=== PATIENT | female | born 1945 | race Caucasian/White ===

== ENCOUNTER 2016-11-20 20:57 | Inpatient (IN) | payer OTHER ==
[~2016-11-20] VITALS: Ht 154.9 cm; Wt 58.4 kg
[2016-11-20 21:35] LABS: AMYLASE 92 IU/L (1-118); CHLORIDE 104 mEq/L (99-109); POTASSIUM 3.7 mEq/L (3.7-5.4); SODIUM 143 mEq/L (136-147)
[2016-11-20 21:37] LABS: GLUCOSE 92 mg/dL (70-99)
[2016-11-20 21:38] LABS: ANION GAP 13 MEQ/L (2-14)
[2016-11-20 21:40] LABS: BASOPHIL COUNT 0.1 K/uL (0-0.1); EOSINOPHIL (%) 2.2 % (0-5); EOSINOPHIL COUNT 0.3 K/uL (0-0.3); HEMATOCRIT 38.7 % (36.0-46.0); IMMATURE GRANULOCYTE (%) 0.6 % (0.0-0.7); IMMATURE GRANULOCYTE COUNT 0.1 K/uL; INSTRUMENT ABS NEUTROPHIL CT 8.9 K/uL; LYMPHOCYTE COUNT 3.2 K/uL (1.0-2.8); MCH 30.6 PG (29.0-34.0); MCHC 33.9 G/DL (30.0-36.0); MCV 90.4 FL (83-99); MONOCYTE (%) 5.2 % (3-12); MONOCYTE COUNT 0.7 K/uL (0-0.8); NEUTROPHIL (%) 67.5 % (45-76); NEUTROPHIL COUNT 8.9 K/uL (1.8-6.4); RBC DIS.WIDTH-CV 14.4 % (11.8-14.6); RBC DIS.WIDTH-SD 47.9 % (39-53); RED BLOOD COUNT 4.28 M/uL (3.80-5.20); SERUM ETHYL ALCOHOL < 10 mg/dL; WHITE BLOOD COUNT 13.2 K/uL (4.1-10.2)
[2016-11-20 21:42] LABS: UREA NITROGEN (BUN) 28 mg/dL (9-23)
[2016-11-20 21:44] LABS: LIPASE 75 U/L (1.0-51.0)
[2016-11-20 22:03] LABS: GFR ESTIMATE (CALCULATED) 36 mL/min/
[2016-11-20 22:13] LABS: MEAN PLAT.VOLUME 10.1 uM^3 (9.5-12.4); PLAT.SUFFICIENCY ADEQUATE; PLATELET COUNT 204 K/uL (156-360)
[2016-11-20 22:33] LABS: ADD MIUA? YES; BILIRUBIN NEGATIVE; BLOOD SMALL; COLOR STRAW ((YELLOW)); GLUCOSE (STRIP) NEGATIVE; KETONES NEGATIVE; LEUKOCYTES NEGATIVE; NITRITE NEGATIVE; PROTEIN (STRIP) NEGATIVE; SPECIFIC GRAVITY 1.012 (1.000-1.030); UROBILINOGEN 0.2 MG/DL (0.2-1.0)
[2016-11-20 22:36] LABS: BACTERIA NONE SEEN /HPF; EPITHELIAL CELLS RARE /HPF; MUCUS NONE SEEN /LPF; RED BLOOD CELLS 0-5 /HPF (0-5); UCUL ADDED? NO; WHITE BLOOD CELLS 0-5 /HPF (0-5)
[2016-11-20 22:51] LABS: AMPHETAMINE NEGATIVE (500 ng/mL); BARBITURATES NEGATIVE (200 ng/mL); BENZODIAZEPINES NEGATIVE (150 ng/mL); COCAINE NEGATIVE (150 ng/mL); INTERNAL CONTROLS VALID? YES; METHADONE NEGATIVE (200 ng/mL); METHAMPHETAMINE NEGATIVE (500 ng/mL); OPIATES (MORPHINE) NEGATIVE (100 ng/mL); OXYCODONE NEGATIVE (100 ng/mL); PHENCYCLIDINE NEGATIVE (25 ng/mL); PROPOXYPHENE NEGATIVE (300 ng/mL); THC CANNABINOIDS NEGATIVE (50 ng/mL); TRICYCLIC ANTIDEPRESSANTS NEGATIVE (300 ng/mL)
[2016-11-20 23:44] VITALS: BP 174/92; BP 174/97
[2016-11-21 03:09] VITALS: BP 159/77
[2016-11-21 06:10] LABS: HEMATOCRIT 35.3 % (36.0-46.0); MCH 30.3 PG (29.0-34.0); MCHC 33.1 G/DL (30.0-36.0); MCV 91.5 FL (83-99); MEAN PLAT.VOLUME 9.8 uM^3 (9.5-12.4); RBC DIS.WIDTH-CV 14.6 % (11.8-14.6); RBC DIS.WIDTH-SD 48.8 % (39-53); RED BLOOD COUNT 3.86 M/uL (3.80-5.20); WHITE BLOOD COUNT 11.5 K/uL (4.1-10.2)
[2016-11-21 06:11] LABS: PLATELET COUNT 321 K/uL (156-360)
[2016-11-21 06:34] LABS: ALKALINE PHOSPHATASE 61 IU/L (3-129); ANION GAP 7 MEQ/L (2-14); CHLORIDE 105 MEQ/L (99-109); GFR ESTIMATE (CALCULATED) 52 mL/min/; GLUCOSE 126 mg/dL (70-99); POTASSIUM 4.3 MEQ/L (3.7-5.4); SAMPLE HEMOLYSIS CHECK 0; SAMPLE ICTERIC CHECK 0; SAMPLE LIPEMIA CHECK 0; SODIUM 142 MEQ/L (136-147); TOTAL BILIRUBIN 0.6 MG/DL (0.0-1.0); UREA NITROGEN (BUN) 23 mg/dL (9-23)
[2016-11-21 07:09] VITALS: BP 177/83
[2016-11-21 08:13] LABS: POINT-OF-CARE METER ID UU13113698
[2016-11-21 12:10] VITALS: BP 166/64
[2016-11-21] MEDS ORDERED: METFORMIN HCL1000 MG PO (12:17)
[2016-11-21] MEDS ORDERED: LISINOPRIL40 MG PO (12:18)
[2016-11-21] MEDS ORDERED: ERGOCALCIF50000 UNIT PO (12:18)
[2016-11-21] MEDS ORDERED: ESCITALOPRAM OX20 MG PO (12:18)
[2016-11-21] MEDS ORDERED: FETZIMA120 MG PO (12:18)
[2016-11-21] MEDS ORDERED: LAMOTRIGINE100 MG PO (12:19)
[2016-11-21] MEDS ORDERED: PAZEO2.5 ML BOTH EYES (12:19)
[2016-11-21 12:20] LABS: POINT-OF-CARE METER ID UU13113698
[2016-11-21 15:58] LABS: POINT-OF-CARE METER ID UU13113698
[2016-11-21 16:30] VITALS: BP 190/84
[2016-11-21 20:00] VITALS: BP 180/86
[2016-11-22] VITALS (7 sets, daily range): BP systolic 119–200; BP diastolic 56–93
[2016-11-22 05:30] LABS: HEMATOCRIT 33.7 % (36.0-46.0); MCH 30.3 PG (29.0-34.0); MCHC 32.3 G/DL (30.0-36.0); MCV 93.6 FL (83-99); MEAN PLAT.VOLUME 10.2 uM^3 (9.5-12.4); PLATELET COUNT 307 K/uL (156-360); RBC DIS.WIDTH-CV 14.5 % (11.8-14.6); RBC DIS.WIDTH-SD 49.8 % (39-53)
[2016-11-22 05:47] LABS: ALKALINE PHOSPHATASE 58 IU/L (3-129); ANION GAP 9 MEQ/L (2-14); CHLORIDE 103 MEQ/L (99-109); GFR ESTIMATE (CALCULATED) 58 mL/min/; GLUCOSE 103 mg/dL (70-99); POTASSIUM 4.4 MEQ/L (3.7-5.4); SAMPLE HEMOLYSIS CHECK 0; SAMPLE ICTERIC CHECK 0; SAMPLE LIPEMIA CHECK 0; SODIUM 139 MEQ/L (136-147); TOTAL BILIRUBIN 0.5 MG/DL (0.0-1.0); UREA NITROGEN (BUN) 19 mg/dL (9-23)
[2016-11-22 08:08] LABS: POINT-OF-CARE METER ID UU13113803; POINT-OF-CARE USER ID ENVKC36
[2016-11-22 12:02] LABS: POINT-OF-CARE USER ID ENVKC36
[2016-11-22 16:39] LABS: POINT-OF-CARE USER ID ENVKC36
[2016-11-23 04:37] VITALS: BP 148/82
[2016-11-23 08:18] VITALS: BP 182/67
[2016-11-23 20:12] VITALS: BP 144/72
[2016-11-23 22:15] VITALS: BP 160/78
[2016-11-23 22:27] VITALS: BP 160/78
[2016-11-24 06:36] LABS: POINT-OF-CARE METER ID UU14208753
[2016-11-24 11:26] VITALS: BP 139/73
[2016-11-24 11:35] LABS: POINT-OF-CARE METER ID UU14208753
[2016-11-24 16:58] VITALS: BP 140/82
[2016-11-24 16:59] LABS: POINT-OF-CARE METER ID UU14117124
[2016-11-24 20:12] VITALS: BP 130/74
[2016-11-25 04:11] VITALS: BP 122/84
[2016-11-25 06:30] LABS: POINT-OF-CARE METER ID UU14188577
[2016-11-25 07:37] VITALS: BP 202/82
[2016-11-25] MEDS ORDERED: PROMETHAZINE HC25 M1 PO (10:34)
[2016-11-25] MEDS ORDERED: DOCUSATE SODIU100 MG PO (10:35)
[2016-11-25] MEDS ORDERED: NORCO 5/3251 TABLET PO (10:37)
[2016-11-25 11:40] VITALS: BP 152/58
[2016-11-25 11:48] LABS: POINT-OF-CARE METER ID UU14208753
== END 2016-11-25 14:29 | DRG 84 ==
LOC: TRA 20:57 → EDOF 22:32 → 4EAST 22:32 → ENRESERV 22:41 → 4EAST 23:30 → ENRESERV 11-23 17:58 → 3EAST 11-23 22:10
PROVIDERS: Emergency Medicine; Physician Assistant Surgical; Surgery
DX: S06.5X9A Traumatic subdural hemorrhage with loss of consciousness of unspecified duration, initial encounter (principal); S20.219A Contusion of unspecified front wall of thorax, initial encounter; V43.52XA Car driver injured in collision with other type car in traffic accident, initial encounter; E11.9 Type 2 diabetes mellitus without complications; I10 Essential (primary) hypertension; F41.9 Anxiety disorder, unspecified; Z79.84 Long term (current) use of oral hypoglycemic drugs; Z86.73 Personal history of transient ischemic attack (TIA), and cerebral infarction without residual deficits; Z90.81 Acquired absence of spleen
CPT/HCPCS: 70450; 70486; 71010; 71260; 72125; 72129; 72132; 74176; 74177; 80048; 80053; 81003; 82150; 82565; 82948; 83690; 84520; 85025; 85027; 86900; 86901; 94799; 97530 GP; 99281; 99285; G0480; J2405; J3010

== ENCOUNTER 2016-11-25 13:09 | Inpatient (IN) | payer OTHER ==
[~2016-11-25] VITALS: Ht 152.4 cm; Wt 58.9 kg
[~2016-11-25 13:09] MED LIST: DOCUSATE SODIU100 MG PO; ERGOCALCIF50000 UNIT PO; ESCITALOPRAM OX20 MG PO; FETZIMA120 MG PO; LAMOTRIGINE100 MG PO; LISINOPRIL40 MG PO; METFORMIN HCL1000 MG PO; NORCO 5/3251 TABLET PO; PAZEO2.5 ML BOTH EYES; PROMETHAZINE HC25 M1 PO
[2016-11-25 14:40] VITALS: BP 162/78
[2016-11-25 21:26] LABS: POINT-OF-CARE METER ID UU13113712
[2016-11-25 22:56] VITALS: BP 160/80
[2016-11-26 05:35] LABS: HEMATOCRIT 34.4 % (36.0-46.0); MCH 30.2 PG (29.0-34.0); MCHC 32.8 G/DL (30.0-36.0); MEAN PLAT.VOLUME 10.1 uM^3 (9.5-12.4); PLATELET COUNT 348 K/uL (156-360); RBC DIS.WIDTH-CV 14.1 % (11.8-14.6); RBC DIS.WIDTH-SD 47.8 % (39-53); RED BLOOD COUNT 3.74 M/uL (3.80-5.20); WHITE BLOOD COUNT 9.7 K/uL (4.1-10.2)
[2016-11-26 06:07] LABS: ALKALINE PHOSPHATASE 53 IU/L (3-129); ANION GAP 6 MEQ/L (2-14); CHLORIDE 105 MEQ/L (99-109); GFR ESTIMATE (CALCULATED) 58 mL/min/; GLUCOSE 112 mg/dL (70-99); POTASSIUM 4.8 MEQ/L (3.7-5.4); SAMPLE HEMOLYSIS CHECK 0; SAMPLE ICTERIC CHECK 0; SAMPLE LIPEMIA CHECK 0; SODIUM 141 MEQ/L (136-147); TOTAL BILIRUBIN 0.4 MG/DL (0.0-1.0); UREA NITROGEN (BUN) 22 mg/dL (9-23)
[2016-11-26 06:21] VITALS: BP 150/82
[2016-11-26 15:07] VITALS: BP 140/78
[2016-11-27 05:46] VITALS: BP 158/80
[2016-11-27 15:54] VITALS: BP 164/76
[2016-11-28 04:29] VITALS: BP 172/82
[2016-11-28 16:17] VITALS: BP 122/74
[2016-11-29 04:45] VITALS: BP 170/80
[2016-11-29 17:06] VITALS: BP 176/74
[2016-11-29 17:21] VITALS: BP 158/82
[2016-11-30 04:44] VITALS: BP 178/90
[2016-11-30 05:30] VITALS: BP 188/84
[2016-11-30 07:05] VITALS: BP 188/82
[2016-11-30 09:09] VITALS: BP 170/80
[2016-11-30 11:25] VITALS: BP 150/80
[2016-11-30 15:52] VITALS: BP 155/73
[2016-12-01 04:23] VITALS: BP 168/84
[2016-12-01 15:36] VITALS: BP 130/70
[2016-12-02 05:37] VITALS: BP 180/80
[2016-12-02 05:58] LABS: BASOPHIL COUNT 0.1 K/uL (0-0.1); EOSINOPHIL (%) 3.9 % (0-5); EOSINOPHIL COUNT 0.4 K/uL (0-0.3); HEMATOCRIT 35.8 % (36.0-46.0); IMMATURE GRANULOCYTE (%) 0.3 % (0.0-0.7); INSTRUMENT ABS NEUTROPHIL CT 5.2 K/uL; LYMPHOCYTE COUNT 3.7 K/uL (1.0-2.8); MCH 30.8 PG (29.0-34.0); MCV 93.5 FL (83-99); MONOCYTE (%) 9.8 % (3-12); NEUTROPHIL (%) 49.4 % (45-76); NEUTROPHIL COUNT 5.2 K/uL (1.8-6.4); RBC DIS.WIDTH-CV 14.2 % (11.8-14.6); RBC DIS.WIDTH-SD 48.7 % (39-53); RED BLOOD COUNT 3.83 M/uL (3.80-5.20); WHITE BLOOD COUNT 10.4 K/uL (4.1-10.2)
[2016-12-02 06:18] LABS: MEAN PLAT.VOLUME 9.7 uM^3 (9.5-12.4); PLAT.SUFFICIENCY INCREASED
[2016-12-02 06:25] LABS: PLATELET COUNT 468 K/uL (156-360)
[2016-12-02 07:23] LABS: ANION GAP 7 MEQ/L (2-14); CHLORIDE 105 MEQ/L (99-109); GFR ESTIMATE (CALCULATED) 52 mL/min/; GLUCOSE 96 mg/dL (70-99); POTASSIUM 4.4 MEQ/L (3.7-5.4); SAMPLE HEMOLYSIS CHECK 0; SAMPLE ICTERIC CHECK 0; SAMPLE LIPEMIA CHECK 0; SODIUM 141 MEQ/L (136-147); UREA NITROGEN (BUN) 22 mg/dL (9-23)
[2016-12-02 07:27] LABS: ALKALINE PHOSPHATASE 90 IU/L (3-129); TOTAL BILIRUBIN 0.3 MG/DL (0.0-1.0)
[2016-12-02 10:30] VITALS: BP 164/74
[2016-12-02 15:54] VITALS: BP 140/70
[2016-12-03 06:07] VITALS: BP 170/90
[2016-12-03 15:00] VITALS: BP 150/78
[2016-12-04 05:42] VITALS: BP 176/90
[2016-12-04] MEDS ORDERED: DOCUSATE SODIU100 MG PO (10:15)
== END 2016-12-04 12:40 | DRG 946 ==
LOC: 3WEST 13:09 → ENPENDDIS 12-04 → 3WEST 12-04 12:40
PROVIDERS: Physical Medicine & Rehabilitation Pain Medicine; Psychiatry & Neurology Neurology
PROC: F07M0ZZ Range of Motion and Joint Mobility Treatment of Musculoskeletal System - Whole Body (ICD-10-PCS; principal; 2016-11-25)
DX: S06.5X9D Traumatic subdural hemorrhage with loss of consciousness of unspecified duration, subsequent encounter (principal); G93.89 Other specified disorders of brain; K76.89 Other specified diseases of liver; I10 Essential (primary) hypertension; E11.9 Type 2 diabetes mellitus without complications; D64.9 Anemia, unspecified; V44.5XXD Car driver injured in collision with heavy transport vehicle or bus in traffic accident, subsequent encounter; D71 Functional disorders of polymorphonuclear neutrophils; D72.829 Elevated white blood cell count, unspecified; F17.210 Nicotine dependence, cigarettes, uncomplicated; F31.9 Bipolar disorder, unspecified; M19.90 Unspecified osteoarthritis, unspecified site; M12.88 Other specific arthropathies, not elsewhere classified, other specified site; M51.36 Other intervertebral disc degeneration, lumbar region; M50.31 Other cervical disc degeneration, high cervical region; M47.814 Spondylosis without myelopathy or radiculopathy, thoracic region; M48.06 Spinal stenosis, lumbar region; S20.219A Contusion of unspecified front wall of thorax, initial encounter; S30.1XXA Contusion of abdominal wall, initial encounter; Z83.3 Family history of diabetes mellitus; Z82.49 Family history of ischemic heart disease and other diseases of the circulatory system; Z86.73 Personal history of transient ischemic attack (TIA), and cerebral infarction without residual deficits; Z87.820 Personal history of traumatic brain injury; Z90.81 Acquired absence of spleen; Z96.653 Presence of artificial knee joint, bilateral; R26.9 Unspecified abnormalities of gait and mobility
CPT/HCPCS: 70450; 80053; 82948; 85025; 85027; 96125 GN; 97110 GO; 97112 GO; 97530 GP